=== PATIENT | female | born 1945 | race Caucasian/White ===

== ENCOUNTER 2017-08-10 09:20 | Day surgery (SDC) | payer MEDICARE, BC ==
--- NOTE | 2017-07-30 16:19 | HP ---
CC: Dr. Jena Lozada * PREOPERATIVE HISTORY AND PHYSICAL: DATE OF ADMISSION: 08/10/17 This patient is scheduled for same-day surgery admission by Dr. Rider on 08/10/17. DATE OF PREOPERATIVE HISTORY AND PHYSICAL EXAMINATION: 07/30/17. ATTENDING SURGEON: Dr. Obie Rider * (dictated by Analilia Rodgers NP). CHIEF COMPLAINT: Left groin hernia. HISTORY OF PRESENT ILLNESS: The patient is a 71-year-old female recently evaluated by Dr. Rider for a left inguinal hernia. The patient reports that she has had the hernia for at least 20 years, but recently it has been enlarging. She has had 2 episodes of excruciating pain related to sitting on the toilet, straining to have a bowel movement. She denies nausea, vomiting, fever, or chills. She complained of right groin pain as well and Dr. Rider ordered an abdominal ultrasound and there was no evidence of right inguinal hernia or any other abnormality. She does have a small asymptomatic umbilical hernia. Dr. Rider has examined the patient and discussed the findings with her and has recommended open repair of the left inguinal hernia with mesh as the same-day surgery procedure. He discussed the nature of the surgical procedure, the alternative methods of repair, the relevant risks and benefits and today I have reviewed the expected postoperative care and recovery. The patient has had a chance to ask questions and stated that she understands the information and is satisfied with the answers given to her questions. She will sign surgical consent on the day of surgery. 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 PAST SURGICAL HISTORY: D and C, 1986 and 1989; repair of deviated septum in 1987. CURRENT MEDICATIONS: 1. Probiotic daily. 2. Vitamin C 500 mg daily. 3. Systane at bedtime as directed. 4. Vitamin D3 2000 International Units daily. 5. Balance B50 1 tablet daily. 6. Calcium citrate plus D 2 tablets daily. 7. Multivitamin daily. 8. Rabeprazole 20 mg daily as needed. 9. Estrace 0.1 mg applicator twice weekly as needed. 10. Zinc 50 mg daily. ALLERGIES: AMOXICILLIN caused hives and AMPICILLIN caused severe diarrhea. FAMILY HISTORY: No known bleeding tendencies or clotting disorders. She states her mother had some type of unspecified anesthesia reaction to one surgical procedure, but then went on to have several more surgical procedures without any anesthesia problems. SOCIAL HISTORY: She lives alone. She has never been a smoker. She denies the use of alcohol or other substances. She will have a friend stay with her at least overnight postoperatively. REVIEW OF SYSTEMS: Constitutional: No fevers, chills, excessive fatigue, or weight loss. Endocrine: No diabetes or thyroid disease. Hematologic: No easy bruising or bleeding. No history of blood transfusions. Respiratory: She is recovering from a bout of upper respiratory symptoms, but is feeling much better and denies any current dyspnea on exertion or cough. Cardiovascular : No anginal chest pain or palpitations. Gastrointestinal: No nausea, vomiting, or diarrhea. She has had 2 episodes of excruciating left groin pain while trying to have a bowel movement. Genitourinary: No dysuria. Musculoskeletal: No back pain. No current joint pain. Neurologic: No complaints of headache or blurred vision or areas of focal weakness or numbness. General: No history of anesthesia complications. No history of deep vein thrombosis or pulmonary embolism. PHYSICAL EXAMINATION GENERAL SURVEY: The patient is a 71-year-old female, well-developed, well- nourished, in no acute distress. VITAL SIGNS: Height 58 inches, weight 115 pounds, body mass index 24. Blood pressure 130/70, pulse 68 and regular, respiratory rate 16. HEENT: Benign. NECK: Supple. No cervical lymphadenopathy. LUNGS: Breath sounds bilaterally clear and equal. HEART: Regular rate and rhythm. No murmurs or rubs appreciated. ABDOMEN: Active bowel sounds. Soft, nondistended, nontender throughout. Small umbilical hernia defect, nontender. Moderate-sized left inguinal hernia, reducible when supine. No right inguinal masses or evidence of hernia. PELVIC: Deferred. RECTAL: Deferred. EXTREMITIES: Warm without edema or skin ulceration. NEUROLOGIC: Alert and oriented x3. Steady gait. SKIN: Warm, dry, intact. IMPRESSION: Left inguinal hernia. PLAN: Same-day surgery admission to Dr. Rider's service on 08/10/17 , for open left inguinal hernia repair with mesh. SAMSON RODGERS, LIGHT TECHNICIAN [id number]/[facility] #: [id number] [facility] CLINICGentry
[~2017-08-10 09:20] MED LIST: Buffered Lidocaine 0.9% SYRIN* 5 ML/SYR SYRINGE INTRADERM ONE
[2017-08-10] MEDS ORDERED: Clindamycin 900 MG IVPREMIX(* 900 MG/50 ML SDV IV ONE (09:58)
[2017-08-10] MEDS ORDERED: Buffered Lidocaine 0.9% SYRIN* 5 ML/SYR SYRINGE ONE (09:58)
[2017-08-10] MEDS ORDERED: Lidocaine 1% INJ* 10 MG/ML 30 ML SDV ONE (11:29)
[2017-08-10] MEDS ORDERED: Bupivacaine 0.5% SDV PF* 10-30ML VIAL ONE (11:29)
[2017-08-10] MEDS ORDERED: Lidocaine 1% MPF wEPI 200,000* 30 ML SDV ONE (11:42)
[2017-08-10] MEDS ORDERED: Midazolam* 1 MG/ML 2 ML VIAL (2 MG) ONE (11:47)
[2017-08-10] MEDS ORDERED: fentaNYL* 50 MCG/ML 2 ML VIAL (100 MCG VIAL) ONE (11:47)
[2017-08-10] MEDS ORDERED: Propofol* 10 MG/ML 20 ML BTL IV PUSH ONE (12:05)
[2017-08-10] MEDS ORDERED: Naloxone* 0.4 MG/ML 1 ML VIAL IV PRN (12:09)
[2017-08-10] MEDS ORDERED: HYDROcodone/ACETAMIN 5-325 MG* 1 TAB PO PRN (12:54)
[2017-08-10 14:37] VITALS: BP 118/70
--- NOTE | 2017-08-11 01:32 | OP ---
CC: Jena Lozada MD * DATE OF OPERATION: 08/10/17 - SDS DATE OF : 43 SURGEON: Obie Rider MD. CLIPPER MACHINE OPERATOR: VILMA Suggs. ANESTHESIOLOGIST: Lauri Guillermo MD. ANESTHESIA: Local MAC. PRE-OP DIAGNOSIS: Left inguinal hernia. POST-OP DIAGNOSIS: Left inguinal hernia. OPERATIVE PROCEDURE: Open repair left inguinal hernia with mesh. ESTIMATED BLOOD LOSS: Minimal. IV FLUIDS: Crystalloids. SPECIMENS: None. DRAINS: None. COMPLICATIONS: None. COUNTS: Instrument, needle, and sponge counts correct. DESCRIPTION OF PROCEDURE: The patient was brought to the operating room and placed on the table supine. Sequential compression devices were placed on both lower extremities. Intravenous antibiotics were administered. She was prepped and draped in the usual sterile fashion and time-out was performed. Local anesthetic was infiltrated as a field block in the left groin. An oblique incision was created approximately 5 cm long. Subcutaneous tissues were divided with cautery and crossing veins were cauterized and divided. External oblique aponeurosis was identified. Additional anesthetic was infiltrated beneath this and this was opened along the line of its fibers through the superficial ring. Underlying this, the ilioinguinal nerve was identified. It was mobilized and preserved in a lateral direction. The contents of the inguinal canal were isolated. There was an indirect inguinal hernia identified. This was dissected down to the deep ring and then reduced. The repair was performed with the ProGrip mesh for the left side. The patch was cut to an appropriate size and then it was placed to cover the entire floor of the canal with the round ligament egressing through the opening in the mesh. The lateral portion of the mesh was tucked beneath the external oblique aponeurosis. The ilioinguinal nerve was returned to its anatomic position. The external oblique aponeurosis was then closed with 2-0 Polysorb. Yeimi's was closed with 3-0 Polysorb in an interrupted fashion. The skin was closed with 4-0 Monocryl in subcuticular fashion. Steri-Strips were applied. The patient tolerated the procedure well and was extubated and transferred to Recovery in stable condition. [id number]/[facility] #: [id number] MTDD
== END 2017-08-10 14:15 | disposition home or self-care (01) ==
LOC: OR 09:20
PROVIDERS: ATTEND Surgery
DX: K40.90 Unilateral inguinal hernia, without obstruction or gangrene, not specified as recurrent (principal); G51.0 Bell's palsy; M19.90 Unspecified osteoarthritis, unspecified site; K21.9 Gastro-esophageal reflux disease without esophagitis
CPT/HCPCS: J2001; J2250; J2704; J3010

== ENCOUNTER 2019-08-01 02:00 | Emergency (ER) | payer MEDICARE, BC ==
--- NOTE | 2019-08-01 02:09 | ED ---
HPI Cardiac - HPI Summary HPI Summary: Pt is a 73 y/o F presenting to the ED brought in by EMS for chest pain initially onset around 0100/0130 tonight when she was watching Netflix. She noticed R-sided rib pain that radiated to her back, then palpitations described as fast, then she took her blood pressure and noticed it was high. The pain alleviated with rest. She also reports some dry mouth. She notes shes currently seeing Dr. Jc for cardiology and is scheduled for a stress test. I reviewed the EKG strip from EMS, and found that it was suggestive but not diagnostic of atrial fibrillation, due to excess baseline artifact. - History of Current Complaint Stated Complaint: CHEST PAIN PER EMS Time Seen by Provider: 08/01/19 02:01 Hx Obtained From: Patient Onset/Duration: Started Hours Ago, Resolved Timing: Constant, Lasting Hours Initial Severity: Moderate Current Severity: Mild Chest Pain Location: Right Lateral Chest Pain Radiates: Yes Chest Pain Radiates To:: Back Character: Fast Aggravating Factor(s): Nothing Alleviating Factor(s): Rest Associated Signs and Symptoms: Positive: Chest Pain, Palpitations, Other: - high BP, dry mouth - Allergy/Home Medications Allergies/Adverse Reactions: Allergies Allergy/AdvReac Type Severity Reaction Status Date / Time amoxicillin Allergy Hives Verified 08/01/19 02:05 ampicillin Allergy See Comment Verified 08/01/19 02:05 Home Medications: Home Medications Rabeprazole Sodium 1 tab PO DAILY PRN 08/01/19 [History Confirmed 08/01/19] PMH/Surg Hx/FS Hx/Imm Hx Previously Healthy: Yes Endocrine/Hematology History: Denies: Hx Bone Marrow Disease, Hx Diabetes, Hx Sickle Cell Disease, Hx Thyroid Disease, Hx Anemia Cardiovascular History: Denies: Hx Hypertension, Hx Pacemaker/ICD Respiratory History: Denies: Hx Asthma, Hx Chronic Obstructive Pulmonary Disease (COPD) GI History: Reports: Hx Gastroesophageal Reflux Disease, Hx Hiatal Hernia, Hx Irritable Bowel - HX OF, IMPROVEMENT ON PROBIOTICS, Other GI Disorders - CURRENTLY HAS LEFT INGUINAL HERNIA Denies: Hx Ulcer Musculoskeletal History: Reports: Hx Arthritis - GENERALIZED, ESPECIALLY NECK, KNEES, Hx Tendonitis - HX OF IN WRISTS, OK NOW, Other Musculoskeletal History - RIGHT ROTATOR CUFF TEAR WITH PAIN Denies: Hx Osteoporosis Sensory History: Reports: Hx Contacts or Glasses - GLASSES Denies: Hx Cataracts, Hx Glaucoma, Hx Hearing Aid Opthamlomology History: Reports: Hx Contacts or Glasses - GLASSES Denies: Hx Cataracts, Hx Glaucoma Neurological History: Reports: Other Neuro Impairments/Disorders - HX OF BELLS PALSY RIGHT SIDE OF FACE, FACIAL PAIN, ACUPUNCTURE HELPS Psychiatric History: Reports: Hx Anxiety - WORRIES A LOT, FEARFUL, TAKES NO MEDS Denies: Hx Panic Disorder - Cancer History Hx Chemotherapy: No Hx Radiation Therapy: No - Surgical History Surgery Procedure, Year, and Place: [place] [facility] [place] [place] WISDOM TEETH REMOVED DENTAL OFFICE Hx Anesthesia Reactions: No Infectious Disease History: Reports: Hx Shingles Denies: Hx Hepatitis, Hx Human Immunodeficiency Virus (HIV), History Other Infectious Disease - Family History Known Family History: Negative: Blood Disorder - Social History Alcohol Use: None Hx Substance Use: No Substance Use Type: Reports: None Hx Tobacco Use: No Smoking Status (MU): Never Smoked Tobacco Have You Smoked in the Last Year: No Review of Systems Positive: Other - dry mouth Positive: Palpitations, Chest Pain All Other Systems Reviewed And Are Negative: Yes Physical Exam - Summary Physical Exam Summary: Appearance: Well-appearing, Well-nourished, lying in bed comfortably Skin: Warm, dry, no obvious rash Eyes: sclera anicteric, no conjunctival pallor ENT: mucous membranes moist, pharynx appears normal Neck: Supple, nontender Respiratory: Clear to auscultation, no signs of respiratory distress Cardiovascular: Normal S1, S2. No murmurs. Normal distal pulses in tibial and radial bilaterally. Abdomen: Soft, nontender, normal active bowel sounds present Musculoskeletal: Normal, Strength/ROM Intact Neurological: A&Ox3, awake and alert, mentation is normal, speech is fluent and appropriate Psychiatric: affect is normal, does not appear anxious or depressed Triage Information Reviewed: Yes Vital Signs Reviewed: Yes Procedures - Sedation Patient Received Moderate/Deep Sedation with Procedure: No Diagnostics - Laboratory Result Diagrams: 08/01/19 02:23 08/01/19 02:23 Lab Statement: Any lab studies that have been ordered have been reviewed, and results considered in the medical decision making process. - EKG 0156 Cardiac Rate: NL - 78 EKG Rhythm: Sinus Rhythm ST Segment: Normal Ectopy: None Summary of EKG Findings: EKG at 0156 shows NSR at 78 BPM, P waves, QRS complex, and T waves are within normal limits, T waves and intervals are normal, no ischemic changes. This is a normal EKG. ED physician has reviewed and interpreted this EKG. 0420 Cardiac Rate: NL - 76 ST Segment: Normal Ectopy: None EKG Comparison: No Significant Change Summary of EKG Findings: EKG at 0420 shows NSR at 76 BPM, P waves, QRS complex, and T waves are within normal limits, T waves and intervals are normal, no ischemic changes. This is a normal EKG. ED physician has reviewed and interpreted this EKG. Disposition - Course Course Of Treatment: Pt is a 73 y/o F presenting to the ED brought in by EMS for chest pain. She noticed R-sided rib pain that radiated to her back, then palpitations described as fast, then she took her blood pressure and noticed it was high. The pain alleviated with rest. She also reports some dry mouth. She notes shes currently seeing Dr. Jc for cardiology and is scheduled for a stress test. I reviewed the EKG strip from EMS, and found that it was suggestive but not diagnostic of atrial fibrillation, due to excess baseline artifact. Pt's physical exam is nml. EKG at 0156 shows NSR at 78 BPM, P waves , QRS complex, and T waves are within normal limits, T waves and intervals are normal, no ischemic changes. This is a normal EKG. ED physician has reviewed and interpreted this EKG. EKG at 0420 shows NSR at 76 BPM, P waves, QRS complex , and T waves are within normal limits, T waves and intervals are normal, no ischemic changes. This is a normal EKG. ED physician has reviewed and interpreted this EKG. Pt will be sent home with dx of palpitations and chest pain. She is stable and agreeable with this plan. - Diagnoses Provider Diagnoses: Palpitations, Chest pain Discharge ED - Sign-Out/Discharge Documenting (check all that apply): Patient Departure - Discharge Plan Condition: Good Disposition: HOME Patient Education Materials: Chest Pain (ED), Heart Palpitations (ED) Referrals: Jena Lozada MD [Primary Care Provider] - If Needed Additional Instructions: The tests we ran tonight did not show any sign of heart disease. It is possible that the symptoms you had earlier could have been due to an abnormality in your heart rhythm, but that is not for certain. Definitely follow through with the event monitor your doctor has ordered. - Billing Disposition and Condition Condition: GOOD Disposition: Home - Attestation Statements Document Initiated by Gregor: Yes Documenting Scribe: Mikayla Cabral Provider For Whom Gregor is Documenting (Include Credential): Roland Fry MD. Scribe Attestation: Mikayla Oconnor, rened for Roland Fry MD. on 08/02/19 at 0538. Scribe Documentation Reviewed: Yes Provider Attestation: The documentation as recorded by the Mikayla peck accurately reflects the service I personally performed and the decisions made by , Roland Fry MD. Status of Scribe Document: Viewed
[2019-08-01 02:41] LABS: Hematocrit 42 % (35-47); Hemoglobin 14.5 g/dL (12.0-16.0); Mean Corpuscular HGB Conc 35 g/dL (31-36); Mean Corpuscular Hemoglobin 31 pg (27-31); Mean Corpuscular Volume 90 fL (80-97); Red Blood Count 4.66 10^6 /uL (3.70-4.87); Red Cell Distribution Width 14 % (10-15)
[2019-08-01 02:43] LABS: Calcium 9.3 mg/dL (8.6-10.3); Magnesium 1.9 mg/dL (1.9-2.7); Total Bilirubin 0.5 mg/dL (0.2-1.0)
[2019-08-01 02:49] LABS: Albumin/Globulin Ratio 1.5 (1-3); BUN/Creatinine Ratio 34.5 (8-20); EGFR African American 130.7 (>60); Globulin 2.7 g/dL (2-4); Total Protein 6.7 g/dL (6.4-8.9)
[2019-08-01 02:50] LABS: Troponin I 0.01 ng/mL (<0.03)
--- OUTSIDE RECORDS SUMMARY | 2019-08-01 02:50 | XMS REPORT | Continuity of Care Document ---
:1945 External Reference #:[id number] Author Name Bhaskar Jc M.D. (transmitted by agent of provider Elma Rivera) Address [address] [address] Care Team Providers Name Role Phone Nikole Merida MD - Internal Medicine Care Team Information Candle Wrapper Mark Jimenez TDDS - Oral and Care Team Information Candle Wrapper Maxillofacial Radiology Jena Lozada MD - Internal Medicine Care Team Information Candle Wrapper Problems Active Problems Provider Date Pure hypercholesterolemia Nikole Merida M.D., FACP Onset: 05/17/2011 Gastroesophageal reflux disease Nikole Merida M.D., FACP Onset: 05/17/2011 Anemia Onset: 05/17/2011 Social History Type Date Description Comments Sex Unknown ETOH Use Denies alcohol use Tobacco Use Start: Unknown Patient has never smoked Smoking Status Reviewed: 07/25/19 Patient has never smoked Exercise Exercises regularly Once every 2 weeks Type/Frequency Will return to strength training and walking once weather is better Allergies, Adverse Reactions, Alerts Active Allergies Reaction Severity Comments Date Ampicillin bleeding from rectum Severe 05/19/2011 Amoxicillin hives 07/09/2017 Medications Active Medications SIG Qnty Indications Ordering Date Provider Xylimelts 1-2 tabs daily as Unknown 07/24/2019 needed for dry mouth Estrace 1 applicator 2 x 45units Tr Ferraro NP 0.1mg/GM wkly as needed Cream Rabeprazole Sodium 1 by mouth every Unknown day as needed 20mg Tablets DR Calcium Citrate 2 by mouth every Unknown Plus/D day Tablets Vitamin D3 1 by mouth every Unknown 2000Unit day Capsules Systane at bedtime as Unknown Oiuntment directed Vitamin C 1 by mouth every Unknown 500mg day Tablets Zinc Chelated 1 tab daily (otc) Unknown 50mg Tablets Medications Administered in Office Medication SIG Qnty Indications Ordering Provider Date B-12 Injection Nikole Merida M.D., FACP 12/16/2006 Injection Immunizations CPT Code Status Date Vaccine Lot # [id number] Given 05/10/2013 Flu Vaccine Split Virus Preservative Free For [id number] Indiv 3Yr Older Q2037 Given 04/16/2012 Fluvirin Im 3Yrs And Older Q2035 Given 05/19/2011 Afluria Vaccine [id number] 38883 Given 05/08/2010 Flu Vaccine Split Virus Preservative Free For Indiv 3Yr Older 90035 Given 11/29/2009 Tdap - Tetanus/Diptheria/Acellular Pertussis 00591 Given 07/03/2009 Influenza Virus Vaccine, Pandemic Formulation 53692 Given 07/03/2009 Administration Swine Flu Shot 10874 Given 04/05/2009 Influenza Virus 3Yrs & Over 38308 Given 05/17/2008 Influenza Virus 3Yrs & Over 66074 Given 05/17/2008 Influenza Virus 3Yrs & Over 01752 Given 09/09/2007 Zoster (Zostavax) 56915 Given 09/09/2007 Zoster (Zostavax) 74880 Given 04/25/2007 Influenza Virus 3Yrs & Over 68011 Given 05/10/2006 Influenza Virus 3Yrs & Over 90744 Given 05/10/2006 Influenza Virus 3Yrs & Over Vital Signs Date Vital Result Comment 07/25/2019 2:10pm Height 59 inches 4'11" Weight 109.38 lb without shoes Heart Rate 84 /min right radial BP Systolic Sitting 142 mmHg ule reg cuff BP Diastolic Sitting 80 mmHg ule reg cuff BP Systolic Standing 138 mmHg ule reg cuff BP Diastolic Standing 80 mmHg ule reg cuff BMI (Body Mass Index) 22.1 kg/m2 Ejection Fraction 60%-65% echo 06/06/19 08/20/2017 9:49am Heart Rate 64 /min BP Systolic 118 mmHg BP Diastolic 72 mmHg Respiratory Rate 16 /min Body Temperature 97.1 F Results Description No Information Available Procedures Date Code Description Status 07/25/2019 38670 EKG Tracing & Interpretation Completed 06/06/2019 03868 ECHO Transthorasic Realtime 2D W Doppler & Color Flow Completed Hosp 03/01/2019 [id number] Mammogram Completed 02/07/2014 [id number] Mammogram Completed 05/30/2013 [id number] Mammogram Completed 12/14/2011 [id number] Mammogram Completed 06/11/2011 [id number] Bone Mineral Density Test Completed 12/15/2010 [id number] Mammogram Completed 12/13/2009 [id number] Mammogram Completed 11/15/2008 [id number] Bone Mineral Density Test Completed 02/15/2007 [id number] Diabetic Foot Exam Completed 12/26/2004 [id number] Colonoscopy Completed 12/09/2000 [id number] Diabetic Retinal Eye Exam Completed Medical Devices Description No Information Available Encounters Description No Information Available Assessments Date Code Description Provider 07/25/2019 R06.02 Shortness of breath Bhaskar Jc M.D. 07/25/2019 E78.5 Hyperlipidemia Bhaskar Jc M.D. 07/25/2019 K21.9 Gastroesophageal reflux disease Bhaskar Jc M.D. 07/25/2019 R42 Lightheadedness Bhaskar Jc M.D. 07/25/2019 R03.0 Elevated blood-pressure reading without Bhaskar Jc M.D. diagnosis of hypertension 07/25/2019 R00.2 Palpitations Bhsakar Jc M.D. 06/06/2019 R06.02 Shortness of breath Dinh Tobar M.D. Plan of Treatment Future Appointment(s):08/28/2019 11:00 am - Bhaskar Jc M.D. at [facility]07/25/2019 - Bhaskar Jc M.D.R06.02 Shortness of breathNew Orders:Stress Test, Exercise Nuclear, Scheduled: 08/28/19E78.5 DnklleclvklekmC97.9 Gastroesophageal reflux drspsdqZ72 QuyfigtvavcozhpA96.0 Elevated blood-pressure reading without diagnosis of hypertensionNew Orders: Ambulatory Blood Pressure Monitor, Ordered: 07/25/19Recommendations:check home bp's and bring unit to office use warmup and cool down with exercise gentle moderate exercise for 30 min 4-5 /week. bp check with home unit ov JFM 4 mR00.2 PalpitationsNew Orders:[facility] Telemetry, Ordered: Recommendations:evaluate for afib minimize caffeine Functional Status Description No Information Available Mental Status Description No Information Available Referrals Description No Information Available
--- OUTSIDE RECORDS SUMMARY | 2019-08-01 02:50 | XMS REPORT | Continuity of Care Document ---
:1945 External Reference #:[id number] Author Name Pino Talley Care Team Providers Name Role Phone Nikole Merida MD - Internal Medicine Care Team Information Center Line Cutter Operator Mark Jimenez TDDS - Oral and Care Team Information Center Line Cutter Operator [phone] Maxillofacial Radiology Jena Lozada MD - Internal Medicine Care Team Information Center Line Cutter Operator Problems Active Problems Provider Date Pure hypercholesterolemia Nikole Merida M.D., FACP Onset: 05/17/2011 Gastroesophageal reflux disease Nikole Merida M.D., FACP Onset: 05/17/2011 Anemia Onset: 05/17/2011 Social History Type Date Description Comments Sex Unknown ETOH Use Rarely consumes alcohol Tobacco Use Start: Unknown Patient has never smoked Smoking Status Reviewed: 08/20/17 Patient has never smoked Exercise Type/Frequency Exercises regularly Allergies, Adverse Reactions, Alerts Active Allergies Reaction Severity Comments Date Ampicillin bleeding from rectum Severe 05/19/2011 Amoxicillin hives 07/09/2017 Medications Active Medications SIG Qnty Indications Ordering Provider Date Probiotic everyday Carmelina Cotton, 04/05/2012 Capsules M.DAbby Estrace 1 applicator 2 x 45units Tr Ferraro NP 0.1mg/GM wkly as needed Cream Rabeprazole Sodium 1 by mouth every Unknown day as needed 20mg Tablets DR Gleason Vitamin 1 by mouth every Unknown day Tablets Calcium Citrate 2 by mouth every Unknown Plus/D day Tablets Balance B-50 1 tabs every day Unknown Tablets Vitamin D3 1 by mouth every [...] CPT Code Status Date Vaccine Lot # [id number] Given 05/10/2013 Flu Vaccine Split Virus Preservative Free For [id number] Indiv 3Yr Older Q2037 Given 04/16/2012 Fluvirin Im 3Yrs And Older Q2035 Given 05/19/2011 Afluria Vaccine [id number] 12491 Given 05/08/2010 Flu Vaccine Split Virus Preservative Free For Indiv 3Yr Older 33543 Given 11/29/2009 Tdap - Tetanus/Diptheria/Acellular Pertussis 52569 Given 07/03/2009 Influenza Virus Vaccine, Pandemic Formulation 29306 Given 07/03/2009 Administration Swine Flu Shot 31474 Given 04/05/2009 Influenza Virus 3Yrs & Over 53111 Given 05/17/2008 Influenza Virus 3Yrs & Over 82724 Given 05/17/2008 Influenza Virus 3Yrs & Over 84681 Given 09/09/2007 Zoster (Zostavax) 09509 Given 09/09/2007 Zoster (Zostavax) 41051 Given 04/25/2007 Influenza Virus 3Yrs & Over 17967 Given 05/10/2006 Influenza Virus 3Yrs & Over 74995 Given 05/10/2006 Influenza Virus 3Yrs & Over Vital Signs Date Vital Result Comment 08/20/2017 9:49am Heart Rate 64 /min BP Systolic 118 mmHg BP Diastolic 72 mmHg Respiratory Rate 16 /min Body Temperature 97.1 F 07/30/2017 1:07pm Weight 115.00 lb Heart Rate 68 /min BP Systolic 130 mmHg BP Diastolic 70 mmHg Respiratory Rate 16 /min Body Temperature 97.1 F Results Description No Information Available Procedures Date Code Description Status 06/06/2019 20349 ECHO Transthorasic Realtime 2D W Doppler & Color Flow Completed Hosp 03/01/2019 [id number] Mammogram Completed 02/07/2014 [id number] Mammogram Completed 05/30/2013 [id number] Mammogram Completed 12/14/2011 [id number] Mammogram Completed 06/11/2011 [id number] Bone Mineral Density Test Completed 12/15/2010 [id number] Mammogram Completed 12/13/2009 [id number] Mammogram Completed 11/15/2008 [id number] Bone Mineral Density Test Completed 02/15/2007 [id number] Diabetic Foot Exam Completed 12/26/2004 [id number] Colonoscopy Completed 12/09/2000 [id number] Diabetic Retinal Eye Exam Completed Medical Devices Description No Information Available Encounters Description No Information Available Assessments Date Code Description Provider 06/06/2019 R06.02 Shortness of breath Dinh Tobar M.D. Plan of Treatment 08/20/2017 - Analilia Schaffer, NPK40.90 Unilateral inguinal hernia, without obstruction or gangrene, not specified as recurrentFollow up:As [id number] Encounter for change or removal of surgical wound dressing Functional Status Description No Information Available Mental Status Description No Information Available Referrals Description No Information Available
[2019-08-01 02:51] LABS: Potassium 4.1 mmol/L (3.5-5.0)
[2019-08-01 03:08] LABS: TSH (Thyroid Stimulating Horm) 2.56 mcIU/mL (0.34-5.60)
[2019-08-01 03:17] LABS: Platelet Count Platelets clumped. 10^3/uL (150-450)
[2019-08-01 03:18] LABS: ABS Basophils 0.1 10^3/ul (0-0.2); ABS Eosinophils 0.1 10^3/ul (0-0.6); ABS Lymphocytes 2.4 10^3/ul (1.0-4.8); ABS Monocytes 0.4 10^3/ul (0-0.8); ABS Neutrophils 5.3 10^3/ul (1.5-7.7); Eosinophil % 1.2 %; Lymphocyte % 29.4 %; Nucleated Red Blood Cells % 0.2; White Blood Count 8.3 10^3/uL (3.5-10.8)
[2019-08-01 06:05] VITALS: BP 115/66
== END 2019-08-01 06:08 | disposition home or self-care (01) ==
LOC: ED 02:00
DX: R07.9 Chest pain, unspecified (principal); R00.2 Palpitations; Z79.899 Other long term (current) drug therapy; R68.2 Dry mouth, unspecified
CPT/HCPCS: 36415; 80053; 83735; 84443; 84484; 85025; 85379; 93005; 99284